=== PATIENT | male | born 1955 | race Caucasian/White ===

== ENCOUNTER 2021-10-19 14:50 | Emergency (ER) | payer MEDICAID, MEDICARE, SELFPAY ==
[~2021-10-19] VITALS: Ht 190.5 cm; Wt 104.5 kg
[~2021-10-19 14:50] MED LIST: HALO5TAB2 PO; LITH600C PO
[2021-10-19 16:28] VITALS: BP 115/65
[2021-10-19] MEDS ORDERED: BACITRACIN 0.9 GM PACKET OINTMENT TP ONE (17:09)
== END 2021-10-19 17:26 | disposition left against medical advice (07) ==
LOC: EMS 15:15
DX: S00.81XA Abrasion of other part of head, initial encounter (principal); F12.90 Cannabis use, unspecified, uncomplicated; F17.210 Nicotine dependence, cigarettes, uncomplicated; W18.39XA Other fall on same level, initial encounter; Y93.89 Activity, other specified; Y92.89 Other specified places as the place of occurrence of the external cause; Y99.8 Other external cause status; Z90.49 Acquired absence of other specified parts of digestive tract
CPT/HCPCS: 99283